=== PATIENT | female | born 1975 | race Two or more races ===

== ENCOUNTER 2020-07-18 09:45 | Inpatient (IN) | payer OTHER ==
[~2020-07-18] VITALS: Ht 193 cm; Wt 149.7 kg
[2020-07-18] MEDS ORDERED: TOPROL XL50 M1 PO (12:30)
[2020-07-18] MEDS ORDERED: TOPROL XL25 M1 PO (12:31)
[2020-07-26] MEDS ORDERED: OMEPRAZOLE20 MG (08:23)
== END 2020-07-28 20:57 | disposition home or self-care (01) | DRG 331 ==
LOC: O/R 07-25 07:35 → SURH 07-25 07:35
PROVIDERS: ADMIT Colon & Rectal Surgery; ATTEND Colon & Rectal Surgery
PROC: 0DBP4ZZ Excision of Rectum, Percutaneous Endoscopic Approach (ICD-10-PCS; 2020-07-25)
PROC: 07BB4ZZ Excision of Mesenteric Lymphatic, Percutaneous Endoscopic Approach (ICD-10-PCS; 2020-07-25)
PROC: 0DBN4ZZ Excision of Sigmoid Colon, Percutaneous Endoscopic Approach (ICD-10-PCS; principal; 2020-07-25 12:45)
DX: C19 Malignant neoplasm of rectosigmoid junction (principal); Z85.038 Personal history of other malignant neoplasm of large intestine; I10 Essential (primary) hypertension

== ENCOUNTER 2022-01-29 05:35 | Day surgery (SDC) | payer OTHER ==
[~2022-01-29 05:35] MED LIST: OMEPRAZOLE20 MG; TOPROL XL25 M1 PO; TOPROL XL50 M1 PO
== END 2022-01-29 10:15 | disposition home or self-care (01) ==
LOC: AMB-ENDOS 05:35
PROVIDERS: ATTEND Colon & Rectal Surgery
DX: C19 Malignant neoplasm of rectosigmoid junction (principal); Z85.048 Personal history of other malignant neoplasm of rectum, rectosigmoid junction, and anus; Z20.822 Contact with and (suspected) exposure to COVID-19

== ENCOUNTER 2022-02-04 20:33 | Inpatient (IN) | payer OTHER ==
[~2022-02-04] VITALS: Ht 193 cm; Wt 124.7 kg
[2022-02-04] MEDS ORDERED: GABAPENTIN800 M1 PO (21:12)
[2022-02-04] MEDS ORDERED: LOSARTAN POTASS50 MG PO (21:12)
[2022-02-04] MEDS ORDERED: PANTOPRAZOLE SO40 MG PO (21:13)
[2022-02-04] MEDS ORDERED: FAMOTIDINE40 MG PO (21:13)
[2022-02-04] MEDS ORDERED: FENTANYL1 EAC4 TD (21:13)
[2022-02-04] MEDS ORDERED: TIZANIDINE HCL4 MG PO (21:13)
[2022-02-04] MEDS ORDERED: TORADOL60 MG IM (21:15)
--- NOTE | 2022-02-04 21:29 | NUR ---
PTE ALERTA Y ORIENTADO X3 ES REFERIDO POR DR. SMITH POR POSIBLE OBSTRUCCION. SE UBICA A PTE EN CUARTO DE AISLAMIENTO.
--- NOTE | 2022-02-04 21:55 | NUR ---
PTE MASCULINO EVALUADO POR . SE ORIENTA SOBRE ORDENES DE TX REFIERE COMPRENDER. SE COLECTA MUESTRAS DE LABORATORIOS Y SE CANALIZA VENA BAJO MEDIDAS ASEPTICAS. SE ADMINISTRAN LIQUIDOS INTRAVENOSOS, BERTIN ORDEN MEDICA. SE ENTREGA CONTRASTE ORAL Y SE ORIENTA OSBRE INGESTA. SE NOTIFICA A RADIOLOGIA PARA CT PENDIENTE.
--- NOTE | 2022-02-04 23:00 | NUR ---
PACIENTE ALERTA Y ORIENTADO X3. EN CAMA CON BARANDAS ELEVADAS. IV FLUID PATENTE Y NICKI DE EDEMA Y ERITEMA. PACIENTE CONSULTADO CON DR. SMITH. SE MANTIENE BAJO OBSERVACION POR CAMBIOS SIGNIFICATIVOS.
--- NOTE | 2022-02-05 07:16 | NUR ---
SE RECIBE PTE MASCULINO DE 46 YR CAMRON CONCIENTE Y TRANQUILO. PTE SE OBSERVA EN LA UNIDAD DE ISOLACION , SE OBSERVA CON IVF'S PATENTE Y NICKI DE EDEMA. PTGE CONSULTADO POR EL SARAH ORONA. SE LE MITZY S/V LA CUAL DOCUMETA. SE MANTIENE BAJO OBSERVACION POR CAMBIOS.
--- NOTE | 2022-02-05 21:09 | NUR ---
[address] SMITH PARA DARLE SEGUIMIENTO A CONSULTA DEL PACIENTE. SE LE BOAZ MENSAJE DE VOZ SOBRE EL PARTICULAR. SIGNOS VITALES FUERON TOMADOS POR MR. NAKIA OLVERA Y REPORTADOS EN SISTEMA.
--- NOTE | 2022-02-06 01:34 | NUR ---
SE RECIBE PTE ALERTA Y ORIENTADO X3 EN CAMA CON BARANDAS ELEVADAS. PTE CANALIZADO EN MANO DERECHA AREA NICKI DE EDEMA Y DE ENROJECIMIENTO. PTE CON DRIP.9NSS BAJANDO A 125ML/HR. PTE EN ESPERA DE CONSULTA CON .PTE SE MANTIENE BAJO OBSERVACION POR CAMBIOS.
--- NOTE | 2022-02-06 07:16 | NUR ---
SE RECIBE PTE ALERTA Y ORIENTADO X3 EN CAMA BAJA CON BARANDAS ELEVADAS POR SEGURIDAD. SE OBSERVA CON BUEN PATRON RESPIRATORIO. CANALIZADO EN EN BRAZO RT CON ANGIO #20 PATENTE. AREA DE VENOPUNCION NICKI DE EDEMA Y ERITEMA. RECIBIENDO 0.9NSS 125ML/HR. PEND CONS. DR SMITH. SE MANTIENE BAJO OBSERVACION POR CAMBIOS SIGNIFICATIVOS
[2022-02-09] MEDS ORDERED: LINZESS145 MCG PO (16:11)
== END 2022-02-09 17:58 | disposition home or self-care (01) | DRG 392 ==
LOC: ER 20:33 → SEC-K 02-06 10:03 → SURH 02-06 10:37
PROVIDERS: ADMIT Colon & Rectal Surgery; ATTEND Colon & Rectal Surgery
PROC: BW21ZZZ Computerized Tomography (CT Scan) of Abdomen and Pelvis (ICD-10-PCS; principal; 2022-02-05)
DX: K59.09 Other constipation (principal); C20 Malignant neoplasm of rectum; K92.1 Melena; Z85.048 Personal history of other malignant neoplasm of rectum, rectosigmoid junction, and anus; Z79.899 Other long term (current) drug therapy